=== PATIENT | male | born 1930 | race Caucasian/White ===

== ENCOUNTER → 2016-05-06 | Outpatient (CLI) | payer MEDICARE, OTHER ==
--- NOTE | 2016-05-06 09:46 | REP ---
Abdominal aortic ultrasound: Abdominal aortic measurements: Proximal: 2.3 cm AP, 3.4 cm transverse. Renal artery level: 2.3 cm AP, 2.3 cm transverse Mid aorta 2.6 cm AP, 2.6 cm transverse Distal aorta: 4.4 cm AP 4.4 cm transverse Right common iliac artery: 2.9 cm AP, 2.9 cm transverse Left common iliac artery: 2.5 cm AP 2 Impression: There is a 4.4 cm abdominal aortic aneurysm in the distal abdominal aorta. On the prior study of 04/30/2013. The aneurysm measured 3.4 cm in diameter. 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 On the comparison study this measured 2.8 cm right and 2.3 cm on the left. Signed by Adan Long MD 05/06/2016 09:37 A
== END ==
LOC: M RAD 08:27
PROVIDERS: ATTEND Physician Assistant Medical
DX: I71.4 Abdominal aortic aneurysm, without rupture (principal)

== ENCOUNTER → 2016-07-17 | Outpatient (CLI) | payer MEDICARE, OTHER | LOC: M LAB 14:58 | PROVIDERS: ATTEND Student in an Organized Health Care Education/Training Program | DX: C61 Malignant neoplasm of prostate (principal) ==

== ENCOUNTER → 2016-12-25 | Outpatient (CLI) | payer MEDICARE, OTHER | LOC: M LAB 15:04 | PROVIDERS: ATTEND Radiology Radiation Oncology | DX: C61 Malignant neoplasm of prostate (principal) ==

== ENCOUNTER → 2017-01-02 | Outpatient (CLI) | payer MEDICARE, OTHER ==
--- NOTE | 2017-01-07 11:12 | RADONC ---
RADIATION ONCOLOGY FOLLOWUP NOTE DATE: 01/02/2017 DIAGNOSIS: Prostate cancer. STAGE: II, [id number]. ECOG PERFORMANCE STATUS: 0 FOLLOWUP NOTE: Mr. 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 The patient presents today reporting that he is doing quite well with no complaints at this time related to his radiation therapy or disease. He has no urinary or bowel difficulties and no bone pain. REVIEW OF SYSTEMS: The patient's review of systems is noncontributory. He denies nausea, vomiting, fevers, chills, night sweats, diplopia, headaches, anxiety or depression, anorexia, weight loss, visual disturbances, chest pain, urinary or bowel difficulties, bone pain, or neurological problems. PHYSICAL EXAMINATION: The patient is a well-developed, well-nourished male in no acute distress. HEENT examination is normocephalic, atraumatic. Extraocular movements are intact. There is no palpable cervical, supraclavicular, infraclavicular, axillary, or inguinal lymphadenopathy present. Lungs are clear to auscultation and percussion. Heart has a regular rate and rhythm. Abdomen is benign with no hepatosplenomegaly, masses, or tenderness. Rectal examination reveals a normal anal sphincter tone. His prostate is smooth with no evidence of nodularity. Skeletal examination reveals no tenderness to pressure or percussion of the bony skeleton. Extremities reveal no clubbing, cyanosis, or edema. Neurologic examination is grossly intact, as is the remainder of the physical examination. ASSESSMENT The patient is clinically MICHAELA at this time and will be seen by us again in April for routine followup. The patient has been followed by me for quite some time. In 2012, his PSA began to climb and reached a level of 9.82 on 04/12/2013. He was subsequently treated with hormonal therapy, and the PSA had dropped while on that treatment down to a low of 0.08. It remained 0.08 on 01/03/2015, two years ago. The patient subsequently stopped hormonal treatments, considering that he did so well and his PSAs remained low. He is now presenting and had a PSA done last week on 12/25/2016, which is starting to climb back and is 1.70. The patient is scheduled to return to [facility] and will be returning here in April. I have scheduled him to see me at that time, and we will repeat a PSA then. At the present time, his PSA remains low and I see no need to immediately start him back on hormonal therapy. Indeed, he is doing quite well, especially for his age, at this point. We will continue to follow him closely. cc: Alejandro Robertson MD [facility]
== END ==
LOC: M ONCR 13:30
PROVIDERS: ATTEND Radiology Radiation Oncology
DX: C61 Malignant neoplasm of prostate (principal)

== ENCOUNTER → 2017-01-23 | Outpatient (CLI) | payer MEDICARE, OTHER ==
--- NOTE | 2017-01-23 11:19 | REP ---
Abdominal aorta ultrasound: Abdominal Aortic Measurements are as follows: Proximal 2.8 cm AP 3.2 cm TRV Renal Artery Level 25 cm AP 2.5 cm TRV Mid Aorta 2.4 cm AP 2.4 cm TRV Distal Aorta 4.6 cm AP 5.0 cm TRV R Iliac Artery 3.0 cm AP 2.6 cm TRV L Iliac Artery 2.7 cm AP 3.3 cm TRV There is a 4.6 x 5.0 cm distal abdominal aorta aneurysm spanning a craniocaudad length of 5.0 cm. On 05/06/2016 this measured 4.4 x 4.4 cm. 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 On 05/06/2016 this measured 2.9 x 2.9 cm. There is a left iliac artery 2.7 x 3.3 cm aneurysm on 05/06/2016 this measured 2.5 x 2.9 cm. Signed by Adan Long MD 01/23/2017 11:10 A
== END ==
LOC: M RAD 08:12
PROVIDERS: ATTEND Surgery Vascular Surgery
DX: I71.4 Abdominal aortic aneurysm, without rupture (principal)

== ENCOUNTER → 2017-02-06 | Outpatient (CLI) | payer MEDICARE, OTHER ==
--- NOTE | 2017-02-06 11:10 | REP ---
CT of the abdomen pelvis without IV or bowel contrast for evaluation of abdominal aortic aneurysm: Comparison is 05/04/2010. There is an aneurysm of the distal abdominal aorta above the bifurcation, as previously. The aneurysm today measures 4.6 cm diameter. This is 3.1 cm x 2.6 cm previously). There is no evidence of periaortic hematoma. There is a neural there is mild dilatation of the proximal iliac arteries as previously. The proximal right iliac artery today measures 2.4 cm diameter (2.1 cm previously. The proximal left iliac artery today measures 3.1 cm diameter (previously 2.4 cm. The distal abdominal aorta and proximal iliac arteries are also quite tortuous as previously. There is a 4.7 cm cyst arising from the lower pole left kidney, unchanged from the prior study. There are a few small sub centimeter cysts in each kidney as previously. The visualized lower lung hooks are unremarkable. Cardiac size is upper normal. The unenhanced hepatic parenchyma is unremarkable. There are surgical clips in the gallbladder fossa, unchanged. Pancreas and spleen are unremarkable. The adrenals are unremarkable. The bowel and mesentery are unremarkable. Pelvis: The appendix is unremarkable. The bladder is unremarkable. There is no ascites or adenopathy. There is descending colon and sigmoid colon diverticulosis. There is no diverticulitis. 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 The distal abdominal aorta and proximal iliac arteries are quite tortuous as previously. Signed by Adan Long MD 02/06/2017 11:02 A
== END ==
LOC: M RAD 09:24
PROVIDERS: ATTEND Surgery Vascular Surgery
DX: I71.4 Abdominal aortic aneurysm, without rupture (principal)

== ENCOUNTER → 2017-04-03 | Outpatient (REF) | payer MEDICARE, OTHER ==
[2017-04-03 13:27] LABS: BASO % 0.6 % (0.0-1.0); EOS # 0.3 10^3/uL (0.0-0.50); EOS % 4.8 % (0.0-3.0); IMMATURE GRANULOCYTE % 0.5 % (0-0); LYMPH # 1.3 10^3/uL (1.5-4.5); LYMPH % 20.8 % (24.0-44.0); MEAN CORPUSCULAR HEMOGLOBIN 29.7 pg (27.0-33.0); MEAN CORPUSCULAR HGB CONC 33.3 g/dl (32.0-36.5); MEAN CORPUSCULAR VOLUME 89.4 fl (80.0-96.0); MONO # 0.6 10^3/uL (0.0-0.8); MONO % 8.9 % (0.0-5.0); NEUTROPHILS # 4.2 10^3/uL (1.8-7.7); NEUTROPHILS % 64.4 % (36.0-66.0); PLATELET COUNT, AUTOMATED 196 10^3/uL (150-450); RED CELL DISTRIBUTION WIDTH 13.7 % (11.5-14.5); WHITE BLOOD COUNT 6.4 10^3/uL (4.0-10.0)
[2017-04-03 13:56] LABS: ALBUMIN 3.6 GM/DL (3.2-5.2); ALBUMIN/GLOBULIN RATIO 1.03 (1.00-1.93); ALKALINE PHOSPHATASE 72 U/L (45-117); ALT/SGPT 11 U/L (12-78); ANION GAP 6 MEQ/L (8-16); AST/SGOT 12 U/L (7-37); BLOOD UREA NITROGEN 14 MG/DL (7-18); CALCIUM LEVEL 9.2 MG/DL (8.8-10.2); CARBON DIOXIDE LEVEL 31 MEQ/L (21-32); CHLORIDE LEVEL 106 MEQ/L (98-107); CHOLESTEROL LEVEL 171 MG/DL (<200); CREATININE FOR GFR 0.88 MG/DL (0.70-1.30); GLOMERULAR FILTRATION RATE > 60.0 (>35); GLUCOSE, FASTING 92 MG/DL (83-110); POTASSIUM SERUM 4.3 MEQ/L (3.5-5.1); SODIUM LEVEL 143 MEQ/L (136-145); TOTAL PROTEIN 7.1 GM/DL (6.4-8.2); TRIGLYCERIDES LEVEL 212 MG/DL (<150)
== END ==
LOC: M SFHCADAM 10:17
PROVIDERS: ATTEND Physician Assistant Medical
DX: E55.9 Vitamin D deficiency, unspecified (principal); I10 Essential (primary) hypertension; E53.8 Deficiency of other specified B group vitamins

== ENCOUNTER → 2017-04-11 | Outpatient (CLI) | payer MEDICARE, OTHER | LOC: M LAB 14:07 | DX: C61 Malignant neoplasm of prostate (principal) | CPT/HCPCS: 84153 ==

== ENCOUNTER → 2017-04-23 | Outpatient (CLI) | payer MEDICARE, OTHER | LOC: M ONCR 14:39 | DX: C61 Malignant neoplasm of prostate (principal) | CPT/HCPCS: G0463 ==

== ENCOUNTER → 2017-08-12 | Outpatient (CLI) | payer MEDICARE, OTHER | LOC: M RAD 08:34 | DX: I71.4 Abdominal aortic aneurysm, without rupture (principal) | CPT/HCPCS: 76706 ==

== ENCOUNTER → 2017-08-20 | Outpatient (CLI) | payer MEDICARE, OTHER ==
[2017-08-20 16:56] LABS: APPEARANCE, URINE CLEAR (CLEAR); BACTERIA, URINE AUTO NEGATIVE (NEGATIVE); BILIRUBIN, URINE AUTO NEGATIVE (NEGATIVE); BLOOD, URINE BLOOD NEGATIVE (NEGATIVE); COLOR, URINE YELLOW (YELLOW); GLUCOSE, URINE (UA) AUTO NEGATIVE (NEGATIVE); KETONE, URINE AUTO NEGATIVE (NEGATIVE); LEUKOCYTE ESTERASE, URINE AUTO NEGATIVE (NEGATIVE); MUCUS, URINE SMALL (NEGATIVE); NITRITE, URINE AUTO NEGATIVE (NEGATIVE); PROTEIN, URINE AUTO NEGATIVE (NEGATIVE); RBC, URINE AUTO 3 /HPF (0-3); SPECIFIC GRAVITY URINE AUTO 1.016 (1.002-1.035); SQUAMOUS EPITHELIAL CELL UR AU 0 /HPF (0-6); UROBILINOGEN, URINE AUTO 0.2 mg/dL (0.0-2.0); WBC, URINE AUTO 0 /HPF (0-3)
[2017-08-20 17:04] LABS: PROSTATIC SPECIFIC AG MONITOR 2.07 NG/ML (< 4.0)
== END ==
LOC: M LAB 15:45
DX: R97.20 Elevated prostate specific antigen [PSA] (principal)
CPT/HCPCS: 84153

== ENCOUNTER → 2017-09-01 | Outpatient (CLI) | payer MEDICARE, OTHER ==
[2017-09-01 16:12] LABS: ANION GAP 6 MEQ/L (8-16); BLOOD UREA NITROGEN 15 MG/DL (7-18); CALCIUM LEVEL 8.9 MG/DL (8.8-10.2); CARBON DIOXIDE LEVEL 29 MEQ/L (21-32); CHLORIDE LEVEL 108 MEQ/L (98-107); CREATININE FOR GFR 0.81 MG/DL (0.70-1.30); GLOMERULAR FILTRATION RATE > 60.0 (>35); GLUCOSE, FASTING 116 MG/DL (70-100); POTASSIUM SERUM 4.3 MEQ/L (3.5-5.1); SODIUM LEVEL 143 MEQ/L (136-145)
== END ==
LOC: M LAB 15:14
DX: I10 Essential (primary) hypertension (principal)
CPT/HCPCS: 80048

== ENCOUNTER → 2018-02-25 | Outpatient (CLI) | payer MEDICARE, OTHER ==
[2018-02-25 15:25] LABS: APPEARANCE, URINE CLEAR (CLEAR); BACTERIA, URINE AUTO NEGATIVE (NEGATIVE); BILIRUBIN, URINE AUTO NEGATIVE (NEGATIVE); BLOOD, URINE BLOOD NEGATIVE (NEGATIVE); COLOR, URINE YELLOW (YELLOW); GLUCOSE, URINE (UA) AUTO NEGATIVE (NEGATIVE); KETONE, URINE AUTO NEGATIVE (NEGATIVE); LEUKOCYTE ESTERASE, URINE AUTO NEGATIVE (NEGATIVE); MUCUS, URINE SMALL (NEGATIVE); NITRITE, URINE AUTO NEGATIVE (NEGATIVE); PROTEIN, URINE AUTO NEGATIVE (NEGATIVE); RBC, URINE AUTO 1 /HPF (0-3); SPECIFIC GRAVITY URINE AUTO 1.012 (1.002-1.035); SQUAMOUS EPITHELIAL CELL UR AU 0 /HPF (0-6); UROBILINOGEN, URINE AUTO 0.2 mg/dL (0.0-2.0); WBC, URINE AUTO 1 /HPF (0-3)
[2018-02-25 15:49] LABS: PROSTATIC SPECIFIC AG MONITOR 3.7 NG/ML (< 4.0)
== END ==
LOC: M LAB 14:49
DX: C61 Malignant neoplasm of prostate (principal)
CPT/HCPCS: 84153

== ENCOUNTER → 2018-03-09 | Outpatient (CLI) | payer MEDICARE, OTHER | LOC: M RAD 07:16 | DX: I71.4 Abdominal aortic aneurysm, without rupture (principal) | CPT/HCPCS: 76775 ==

== ENCOUNTER → 2018-03-13 | Outpatient (CLI) | payer MEDICARE, OTHER ==
[2018-03-13 16:57] LABS: ANION GAP 5 MEQ/L (8-16); BLOOD UREA NITROGEN 20 MG/DL (7-18); CALCIUM LEVEL 8.9 MG/DL (8.8-10.2); CARBON DIOXIDE LEVEL 30 MEQ/L (21-32); CHLORIDE LEVEL 107 MEQ/L (98-107); GLOMERULAR FILTRATION RATE > 60.0 (>35); GLUCOSE, FASTING 106 MG/DL (70-100); POTASSIUM SERUM 4.6 MEQ/L (3.5-5.1); SODIUM LEVEL 142 MEQ/L (136-145)
== END ==
LOC: M LAB 15:40
DX: C61 Malignant neoplasm of prostate (principal)
CPT/HCPCS: 80048